=== PATIENT | female | born 1990 | race Caucasian/White ===

== ENCOUNTER 2018-05-21 18:23 | Emergency (ER) | payer BC ==
[~2018-05-21] VITALS: Ht 170.2 cm; Wt 95.3 kg
[2018-05-21 18:26] VITALS: Ht 170.2 cm; Wt 95.3 kg
[2018-05-21 20:17] VITALS: BP 152/95
== END 2018-05-21 20:17 | disposition home or self-care (01) ==
LOC: ED 18:23
DX: M25.512 Pain in left shoulder (principal)
CPT/HCPCS: J1885

== ENCOUNTER 2018-06-07 18:23 | Emergency (ER) | payer BC ==
[~2018-06-07] VITALS: Ht 170.2 cm; Wt 94.8 kg
[2018-06-07 19:47] VITALS: Ht 170.2 cm; Wt 94.8 kg
[2018-06-07 22:04] LABS: BASOPHIL % 0.9 % (0-2); PLATELET COUNT 202 x10^3mcL (130-400); RED CELL DISTRIBUTION WIDTH 12.5 % (11.5-14.5)
[2018-06-07 22:09] LABS: CALCIUM 8.4 mg/dL (8.5-10.1); CHLORIDE SERUM 104 mmol/L (98-107); CREATININE SERUM 0.7 mg/dL (0.6-1.0); GFR1 > 60 mL/min; GLUCOSE SERUM 86 mg/dL (74-106); POTASSIUM SERUM 3.6 mmol/L (3.5-5.1); SODIUM SERUM 139 mmol/L (136-145)
[2018-06-07 22:13] LABS: ALBUMIN 3.9 g/dL (3.4-5.0); ALKALINE PHOSPHATASE 74 U/L (46-116); ALT/SGPT 21 U/L (14-59); AST/SGOT 17 U/L (15-37); BILIRUBIN TOTAL 0.7 mg/dL (0.20-1.00); TOTAL PROTEIN, SERUM 7.6 g/dL (6.4-8.2)
[2018-06-07 23:46] VITALS: BP 127/94
== END 2018-06-07 23:46 | disposition short-term general hospital (02) ==
LOC: ED 18:23
PROVIDERS: Emergency Medicine
DX: I62.9 Nontraumatic intracranial hemorrhage, unspecified (principal); E03.9 Hypothyroidism, unspecified; Z98.890 Other specified postprocedural states
CPT/HCPCS: J1885; J2270; J2765

== ENCOUNTER 2019-02-23 05:03 | Emergency (ER) | payer OTHER ==
[~2019-02-23] VITALS: Ht 167.6 cm; Wt 90.4 kg
[2019-02-23 07:09] VITALS: BP 126/81
== END 2019-02-23 07:09 | disposition home or self-care (01) ==
LOC: ED 05:03
DX: M75.31 Calcific tendinitis of right shoulder (principal); E03.9 Hypothyroidism, unspecified; X50.0XXA Overexertion from strenuous movement or load, initial encounter; Y93.89 Activity, other specified; Y92.89 Other specified places as the place of occurrence of the external cause; Y99.8 Other external cause status
CPT/HCPCS: J1885

== ENCOUNTER 2019-10-12 19:06 | Emergency (ER) | payer OTHER ==
[~2019-10-12] VITALS: Ht 172.7 cm; Wt 71.9 kg
[2019-10-12 19:16] VITALS: Ht 172.7 cm; Wt 71.9 kg
[2019-10-12 19:49] VITALS: BP 128/96
== END 2019-10-12 19:49 | disposition home or self-care (01) ==
LOC: ED 19:06
DX: G47.00 Insomnia, unspecified (principal); R53.83 Other fatigue; E03.9 Hypothyroidism, unspecified